=== PATIENT | female | born 1940 | race Caucasian/White ===

== ENCOUNTER 2016-09-09 02:15 | Emergency (ER) | payer MEDICARE ==
[~2016-09-09] VITALS: Ht 152.4 cm; Wt 59.6 kg
[2016-09-09 02:22] VITALS: BP 157/81; PULSE 77; RESP 20; TEMP 97.9; O2SAT 99
[2016-09-09] MEDS ORDERED: NEXI40CA PO (02:33)
[2016-09-09] MEDS ORDERED: AMLO5 PO (02:33)
[2016-09-09 02:34] VITALS: BP 157/81; PULSE 77; RESP 20; TEMP 97.9; O2SAT 99
--- NOTE | 2016-09-09 03:06 | PD ---
HPI Chief Complaint: Cold / Flu Symptoms Time Seen by Provider: 02:53 Travel History International Travel<30 days: No Contact w/Intl Traveler<30days: No Traveled to known affect area: No History of Present Illness HPI The patient is a 75-year-old female that complains of a cough and mild sore throat for one week. She has chills but never recorded a fever at home. She denies any chest pain. She did have myalgias which were relieved by Motrin today. PFSH Past Medical History Cancer: Yes (rt breast lumpectomy) Cardiovascular Problems: Yes Diminished Hearing: No GERD: Yes Hypertension: Yes Tetanus Vaccination: Unknown Influenza Vaccination: No ?: Not Menopausal: Yes Past Surgical History Abdominal Surgery: Yes (bladder surg) Appendectomy: Yes Cholecystectomy: Yes Genitourinary Surgery: Yes Gynecologic Surgery: Yes Hysterectomy: Yes Tonsillectomy: Yes Social History Alcohol Use: No Tobacco Use: No Substance Use: No Allergies-Medications (Allergen,Severity, Reaction): Coded Allergies: Latex (Verified Allergy, Intermediate, Itching, 09/09/16) Morphine (Verified Allergy, Intermediate, Nausea/Vomiting, 09/09/16) Penicillin (Verified Allergy, Intermediate, Rash, 09/09/16) Reported Meds & Prescriptions Reported Meds & Active Scripts Active Reported Norvasc (Amlodipine Besylate) 5 Mg Tab 5 Mg PO DAILY Nexium (Esomeprazole DR) 40 Mg Capdr 40 Mg PO DAILY Review of Systems Except as stated in HPI: all other systems reviewed are Neg Physical Exam Narrative GENERAL: The patient is alert, oriented 3 and no respirator distress. She does have a persistent cough. Her vital signs show blood pressure 157/81 but are otherwise normal. Oximetry is 99%. SKIN: Warm and dry. HEAD: Atraumatic. Normocephalic. EYES: Pupils equal and round. No scleral icterus. No injection or drainage. ENT: No nasal bleeding or discharge. Mucous membranes pink and moist. The right tympanic membrane shows wax in the canal and cannot be seen. The left tympanic membrane and canal are normal. The throat is slightly red without exudate or abscess. NECK: Trachea midline. No JVD. CARDIOVASCULAR: Regular rate and rhythm. No murmur appreciated. RESPIRATORY: No accessory muscle use. Clear to auscultation except for a a few widely scattered wheezes. Breath sounds equal bilaterally. GASTROINTESTINAL: Abdomen soft, non-tender, nondistended. Hepatic and splenic margins not palpable. No guarding or rebound is present. MUSCULOSKELETAL: No obvious deformities. No clubbing. No cyanosis. No edema. NEUROLOGICAL: Awake and alert. No obvious cranial nerve deficits. Motor grossly within normal limits. Normal speech. PSYCHIATRIC: Appropriate mood and affect; insight and judgment normal. Data Data Last Documented VS Vital Signs Date Time Temp Pulse Resp B/P Pulse Ox O2 Delivery O2 Flow Rate FiO2 09/09/16 02:36 77 20 99 Room Air 09/09/16 02:34 97.9 157/81 Orders Chest, Pa & Lat (09/09/16 03:06) Influenzae A/B Antigen (09/09/16 03:07) MDM Medical Decision Making Medical Screen Exam Complete: Yes Emergency Medical Condition: Yes Medical Record Reviewed: Yes Interpretation(s) The chest x-ray shows no acute change. The influenza A/B antigen is negative for flu a and flu B antigen. The chest x-ray shows no acute change. Differential Diagnosis Pneumonia, bronchitis, viral syndrome, strep pharyngitis Narrative Course The patient appears to have a nonspecific viral syndrome. She needs something for the cough and will be given hydrocodone cough syrup. Diagnosis Primary Impression: Viral syndrome Additional Instructions: As we discussed, start out with 5 cc every 6 hours and it can be increased to 10 cc every 4 hours if you do not have side effects such as nausea, dizziness. Drink plenty of liquids and get plenty of rest. Avoid any tobacco smoke. Follow-up with a primary care physician next week. Med/Other Pt SpecificInfo: Prescription(s) given Scripts Hydrocodone-Guaifenesin Liq (Flowtuss Liq)2.5-200 Mg/5 Ml Soln5 Ml PO Q6H PRN ( COUGH AND COLD SYMPTOMS) #120 ML Ref 0 Prov:Gumaro Madrigal MD 09/09/16 Disposition: 01 DISCHARGE HOME Condition: Stable Gumaro Madrigal MD Sep 09, 2016 03:06
[2016-09-09 04:16] VITALS: BP 154/77; PULSE 74; RESP 18; O2SAT 98
[2016-09-09] MEDS ORDERED: HYDR1SOL20 PO (04:20)
[2016-09-09] MEDS ORDERED: HYDROcodone 5 MG/HOMATROPINE 1.5 MG SYRUP 5 ML CUP PO ONE (04:30)
--- NOTE | 2016-09-09 04:52 | RADHPO ---
EXAM DATE/TIME: 09/09/2016 03:27 [facility] COMPARISON: No previous studies available for comparison. INDICATIONS : Patient states cough for over a week now. MEDICAL HISTORY : Hypertension. Carcinoma, breast. SURGICAL HISTORY : None. ENCOUNTER: Initial ACUITY: 1 week PAIN SCORE: 0/10 LOCATION: Bilateral chest FINDINGS: PA and lateral views of the chest demonstrate the lungs to be symmetrically aerated without evidence of mass, infiltrate or effusion. The cardiomediastinal contours are unremarkable. Osseous structure s are intact. CONCLUSION: No acute disease. Riki Westbrook MD on September 09, 2016 at 4:50 Board Certified Radiologist. This report was verified electronically.
== END 2016-09-09 04:39 | disposition home or self-care (01) ==
LOC: PHED 02:15
DX: B34.9 Viral infection, unspecified (principal); J02.9 Acute pharyngitis, unspecified; I10 Essential (primary) hypertension
CPT/HCPCS: 71020; 87804; 99283